=== PATIENT | male | born 1950 | race Caucasian/White ===

== ENCOUNTER 2018-07-09 22:42 | Inpatient (IN) ==
[2018-07-09] MEDS ORDERED: DUONEB 0.5 MG/3 MG ONE (23:04)
[2018-07-09] MEDS ORDERED: DUONEB 0.5 MG/3 MG NEB ONE ×2 (23:11→23:30)
[2018-07-09] MEDS ORDERED: NITROSTAT SL PRN (23:29)
[2018-07-09] MEDS ORDERED: MAGNESIUM SULFATE 1 GRAM/100 mL PREMIX 1 G/100 ML BAG IV ONE (23:31)
--- NOTE | 2018-07-09 23:35 | DR.URIAD ---
HPI - Time Seen Time seen: 23:31 - PCP Primary Care Physician: NFD - Complaint Chief Complaint Doctors Comments: Patient is complaining of cold, cough, SOB, wheezing for the past four weeks with cough with yellowish sputum production. states he does not have a local doctor and has not seen a doctor in a while. States he has right sidede chest pain when he cough and episode of diarrhea. He denies tobacco use but states he drinks about two beers daily. States he is allergic to steriod pills that makes his legs hurt badily and he stopped the steriods. States he took the steriod IV in the hospital without any problems. He denies dysuria, hematuria or vomiting. Patient with coughing spells and oxygen level drops to 87 during coughing episodes. Chief Complaint:: " C/O REALLY BAD COUCH HURTING IN CHEST AND WHEEZING" Self Treatment fo Chief Complaint: THERAFLU - Reviewed Nurses Notes Reviewed: Yes - Source History Provided: Patient - Mode of Arrival Mode of Arrival: Ambulatory - Timing Onset of Chief Complaint: 06/22/18 - Context Recent Treated Infections: None History of Respiratory: None - Quality Quality of Cough: Productive, Yellow Rhinorrhea: Clear Shortness of Breath: Mild - Associated Signs and Symptoms Other Signs and Symptoms: Cough, Shortness of Breath, Wheeze PMH - PMH Past Medical History: Yes Past Medical History: CVA, Hypertension Past Surgical History: No - Family History History of Family Medical Conditions: Yes Family Medical History: NC, Hypertension - Social History Alcohol Use: Occasionally Do you use any recreational Drugs:: No - infectious screening Have you traveled outside the country in the last 6 months?: No ROS - Review of Systems Constitutional: No Symptoms Reported Eyes: No Symptoms Reported ENTM: No Symptoms Reported, Nose Congestion Respiratoy: No Symptoms Reported, Productive Cough, Short of Breath, Wheezing Cardiovascular: No Symptoms Reported. negative: See HPI, Chest Pain, Edema, Palpitations, Syncope, Cyanosis, Skin Mottling, Other Gastrointestinal/Abdominal: No Symptoms Reported. negative: See HPI, Abdominal Pain, Constipation, Diarrhea, Nausea, Vomiting, Food Intolerance, Other Genitourinary: No Symptoms Reported Neurological: No Symptoms Reported Musculoskeletal: No Symptoms Reported Integumentary: No Symptoms Reported Hematologic/Lymphatic: No Symptoms Reported. negative: See HPI, Anemia, Blood Clots, Easy Bleeding, Easy Bruising, Swollen Glands, Lymphadenopathy, Other Endocrine: No Symptoms Reported Psychiatric: No Symptoms Reported. negative: See HPI, Anxiety, Depression, Hallucinations, Excessive crying, Suicidal, Other PE - General Limitations: No Limitations General Appearance: Alert, In Distress (moderate) - Head Head Exam: Normal Inspection, Atraumatic, Normocephalic - Eyes Eye exam: Normal Appearance, PERRL, EOMI. negative: Scleral Icterus, Conjunctival Injection, Nystagmus, Miosis, Mydrasis, Periorbital Swelling, Periorbital Tenderness, Other - ENT ENT Exam: Normal Exam, Normal Oropharynx, Normal External Ear Exam, Mucous Membranes Moist, TM's Normal Bilaterally External Ear Exam: Normal External Inspection TM/Canal Exam: Bilateral Normal Nose Exam: Normal Nose Exam Nasal Speculum Exam: Bilateral Normal Mouth Exam: Normal Inspection, Drooling Throat Exam: Normal Inspection - Neck Neck Exam: Normal Inspection, Full ROM, Trachea Midline - Chest Chest Inspection: Symmetric Chest Wall Rise. negative: Normal Inspection, Tenderness, Rash, Abscess, Other - Respiratory Respiratory Exam: Normal Lung Sounds Bilat, Prolonged Expiratory Phase Respiratory Exam: Bilateral Wheezing, Bilateral Rhonchi, Bilateral Decreased Breath Sounds - Cardiovascular Cardiovascular Exam: Regular Rate, Normal Rhythm, Normal Heart Sounds - Abdominal Exam Abdominal Exam: Normal Inspection, Normal Bowel Sounds, Soft. negative: Distention, Tenderness, Guarding, Rebound, Rigidity, Dimnished Bowel Sounds, Hyperactive Bowel Sounds, Hypoactive Bowel Sounds, Organomegaly, Trauma, Incision, Ascites, Mass, Bruit, Pulsatile Mass, Hernia, Other Abdominal Tenderness: negative: RUQ, RLQ, LUQ, LLQ, Epigastrium, Suprapubic, Diffuse, Mild, Moderate, Severe, Other - Extremeties Extremities Exam: Normal Inspection, Full ROM, Normal Capillary Refill. negative: Tenderness, Edema, Joint Swelling, Calf Tenderness, Other - Back Back Exam: Normal Inspection, Full ROM. negative: Tenderness, (R) CVA Tenderness, (L) CVA Tenderness, Muscle Spasm, Paraspinal Tenderness, Vertebral Tenderness, Rashes, (R) Sciatic Notch Tenderness, (L) Sciatic Notch Tendern, (R) Straight Leg Raise, (L) Straight Leg Raise, Other - Neurologic Neurological Exam: Alert, Oriented X3, CN II-XII Intact, Normal Gait, Reflexes Normal - Psychiatric Psychiatric Exam: Normal Affect, Normal Mood. negative: Depressed, Agitated, Anxious, Flat Affect, Manic, Homicidal Ideation, Suicidal Ideation, Other - Skin Skin Exam: Warm, Dry, Intact, Normal Color - Vital Signs Vitals: Temperature 98.0 F Pulse Rate [Brachial] 97 Pulse Rate 76 Respiratory Rate 18 Blood Pressure [Left Arm] 159/76 Blood Pressure 175/116 O2 Sat by Pulse Oximetry 95 Course - Reevaluation 1st: Improved - Consultation Called: 01:13 Call Returned: 01:13 (Dr. Godwin to admit) - Education/Counseling Education/Counseling: Patient, Family Educated On: Treatment, Diagnosis, Needs for Follow Up ROR - Labs Reviewed Laboratory Results Reviewed?: Yes (All labs and x-ray results reveiwed and discussed with patient) Result Diagrams: 07/09/18 23:16 07/09/18 23:16 - XRAY XRAY Interpreted by: Radiologist (CXR: Peribronchial thickening suggestive of bronchitis) - EKG Rate: 90 [place]: Normal Rhythm: NSR Block: None Hypertrophy: None ST: Nonsp - Labs Reviewed Laboratory: 07/09/18 23:17 Sputum - Expectorated Sputum - Final WBC 8.7 X10^3/uL (3.6-10.0) 07/09/18 23:16 RBC 4.38 X10^6/uL (4.7-6.0) L 07/09/18 23:16 Hgb 14.7 g/dL (13.5-18.0) 07/09/18 23:16 Hct 41.6 % (42.0-54.0) L 07/09/18 23:16 MCV 94.9 fL (80.0-100.0) 07/09/18 23:16 MCH 33.5 pg (27.0-34.0) 07/09/18 23:16 MCHC 35.2 g/dL (33.0-35.0) H 07/09/18 23:16 RDW 12.9 % (11.6-16.5) 07/09/18 23:16 Plt Count 193 X10^3/uL (150.0-450.0) 07/09/18 23:16 MPV 7.7 fL (7.4-11.0) 07/09/18 23:16 Neut % (Auto) 55.7 % (42.0-75.0) 07/09/18 23:16 Lymph % (Auto) 32.6 % (21.0-51.0) 07/09/18 23:16 [place] % (Auto) 7.1 % (0.0-13.0) 07/09/18 23:16 Eos % (Auto) 4.0 % (0.9-2.9) H 07/09/18 23:16 Baso % (Auto) 0.6 % (0.2-1.0) 07/09/18 23:16 Neut # (Auto) 4.8 x10^3/uL (2.2-4.8) 07/09/18 23:16 Lymph # (Auto) 2.8 X10^3/uL (1.3-2.9) 07/09/18 23:16 [place] # (Auto) 0.6 x10^3/uL (0.3-0.8) 07/09/18 23:16 Eos # (Auto) 0.3 x10^3/uL (0.0-0.2) H 07/09/18 23:16 Baso # (Auto) 0.1 X10^3/uL (0.0-0.1) 07/09/18 23:16 Absolute Nucleated RBC 0.1 /100WBC 07/09/18 23:16 INR Target Range - 07/09/18 23:16 INR 0.94 (0.8-1.3) 07/09/18 23:16 APTT 28.6 SECONDS (22.9-36.5) 07/09/18 23:16 PTT Comment - 07/09/18 23:16 D-Dimer 113 ng/mL (0-400) 07/09/18 23:16 Sodium 143 mmol/L (136-145) 07/09/18 23:16 Corrected Sodium TNP 07/09/18 23:16 Potassium 3.9 mmol/L (3.5-5.1) 07/09/18 23:16 Chloride 106 mmol/L (98-107) 07/09/18 23:16 Carbon Dioxide 25.8 mmol/L (21-32) 07/09/18 23:16 BUN 7 mg/dL (7-18) 07/09/18 23:16 Creatinine 1.00 mg/dL (0.70-1.30) 07/09/18 23:16 Est GFR (MDRD) Af Amer > 60 (>60) 07/09/18 23:16 Est GFR (MDRD) Non-Af > 60 (>60) 07/09/18 23:16 Glucose 99 mg/dL (65-99) 07/09/18 23:16 Calcium 8.3 mg/dL (8.5-10.1) L 07/09/18 23:16 Corrected Calcium TNP 07/09/18 23:16 Magnesium 2.2 mg/dL (1.7-2.9) 07/09/18 23:16 Total Bilirubin 0.20 mg/dL (0.2-1.0) 07/09/18 23:16 AST 55 Units/L (15-37) H 07/09/18 23:16 ALT 54 Units/L (12-78) 07/09/18 23:16 Alkaline Phosphatase 78 Units/L (46-116) 07/09/18 23:16 Creatine Kinase 530 Units/L (39-308) H 07/09/18 23:16 CK-MB (CK-2) 7.1 ng/mL (0-4.0) H* 07/09/18 23:16 CK/CKMB % Calc 1.3 % (<4) 07/09/18 23:16 Troponin I < 0.02 ng/mL (0-1.5) 07/09/18 23:16 Total Protein 8.2 g/dL (6.4-8.2) 07/09/18 23:16 Albumin 3.9 g/dL (3.4-5.0) 07/09/18 23:16 Globulin 4.3 g/dL (2.5-4.5) 07/09/18 23:16 Albumin/Globulin Ratio 0.9 Ratio (1.1-2.1) L 07/09/18 23:16 Amylase 29 Units/L (25-115) 07/09/18 23:16 Lipase 169 Units/L (73-393) 07/09/18 23:16 Ethyl Alcohol mg/dL 205 mg/dL (0-19.9) H 07/09/18 23:16 - Diagnosis Discharge Problem: COPD exacerbation, Chest pain, rule out acute myocardial infarction, Essential hypertension Bronchitis, acute Qualifiers: Bronchitis organism: other organism Qualified Code(s): J20.8 - Acute bronchitis due to other specified organisms Alcohol intoxication Qualifiers: Complication of substance-induced condition: uncomplicated Qualified Code(s): F10.920 - Alcohol use, unspecified with intoxication, uncomplicated - Discharge Plan Disposition: 09 ADMITTED INPATIENT Condition: Stable - Follow ups/Referrals Follow ups/Referrals: NFD,None [Primary Care Provider] - 3 days - Instructions
[2018-07-09 23:37] LABS: BASOPHILS # (AUTO) 0.1 X10^3/uL (0.0-0.1); BASOPHILS % (AUTO) 0.6 % (0.2-1.0); EOSINOPHILS # (AUTO) 0.3 x10^3/uL (0.0-0.2); HEMATOCRIT 41.6 % (42.0-54.0); HEMOGLOBIN 14.7 g/dL (13.5-18.0); LYMPHOCYTES # (AUTO) 2.8 X10^3/uL (1.3-2.9); LYMPHOCYTES % (AUTO) 32.6 % (21.0-51.0); MEAN CORPUSCULAR HEMOGLOBIN 33.5 pg (27.0-34.0); MEAN CORPUSCULAR HGB CONC 35.2 g/dL (33.0-35.0); MEAN CORPUSCULAR VOLUME 94.9 fL (80.0-100.0); MEAN PLATELET VOLUME 7.7 fL (7.4-11.0); MONOCYTES # (AUTO) 0.6 x10^3/uL (0.3-0.8); MONOCYTES % (AUTO) 7.1 % (0.0-13.0); NEUTROPHILS # (AUTO) 4.8 x10^3/uL (2.2-4.8); NEUTROPHILS % (AUTO) 55.7 % (42.0-75.0); PLATELET COUNT 193 X10^3/uL (150.0-450.0); RED BLOOD COUNT 4.38 X10^6/uL (4.7-6.0); RED CELL DISTRIBUTION WIDTH 12.9 % (11.6-16.5); WHITE BLOOD COUNT 8.7 X10^3/uL (3.6-10.0)
[2018-07-09] MEDS ORDERED: ROCEPHIN VIAL 1 GRAM IVP ONE (23:37)
--- NOTE | 2018-07-09 23:37 | RAD ---
Chest, one view Indication: Cough, chest pain and wheezing Comparison: None Findings: The exam is mildly degraded by motion artifact. Given these limitations, the heart is fritz l in size for AP technique. There is mild peribronchial thickening. No definite focal infiltrate, sig nificant effusion or pneumothorax is identified. There is no acute osseous abnormality. Impression: Motion limited exam. Peribronchial thickening, suggestive for bronchitis. Reported By:
[2018-07-09] MEDS ORDERED: NS 1000 ML 1,000 ML ONE (23:41)
[2018-07-09] MEDS ORDERED: ROCEPHIN VIAL 1 GRAM ONE (23:42)
[2018-07-09] MEDS ORDERED: NS 1000 ML 1,000 ML IV SCH (23:45)
[2018-07-09 23:58] LABS: AMYLASE 29 Units/L (25-115); BLOOD ALCOHOL 205 mg/dL (0-19.9); LIPASE 169 Units/L (73-393)
[2018-07-10 00:12] LABS: ALANINE AMINOTRANSFERASE 54 Units/L (12-78); ALBUMIN 3.9 g/dL (3.4-5.0); ALKALINE PHOSPHATASE 78 Units/L (46-116); ASPARTATE AMINO TRANSFERASE 55 Units/L (15-37); BLOOD UREA NITROGEN 7 mg/dL (7-18); CALCIUM 8.3 mg/dL (8.5-10.1); CARBON DIOXIDE 25.8 mmol/L (21-32); CHLORIDE 106 mmol/L (98-107); CKMB % 1.3 % (<4); CREATINE KINASE 530 Units/L (39-308); SODIUM 143 mmol/L (136-145); TOTAL PROTEIN 8.2 g/dL (6.4-8.2); TROPONIN I < 0.02 ng/mL (0-1.5); eGFR NON BLACK RACES > 60 (>60)
[2018-07-10 00:13] LABS: CREATINE KINASE MB 7.1 ng/mL (0-4.0)
[2018-07-10] MEDS ORDERED: TORADOL 30 MG VIAL IVP STA (00:48)
[2018-07-10] MEDS ORDERED: TORADOL 30 MG VIAL ONE (00:50)
[2018-07-10 03:03] VITALS: BMI 35.1
[2018-07-10 03:07] LABS: BILIRUBIN,URINE NEGATIVE (NEGATIVE); BLOOD/HEMOGLOBIN,URINE 1+ (NEGATIVE); GLUCOSE, URINE NEGATIVE (NEGATIVE); KETONES,URINE NEGATIVE (NEGATIVE); LEUKOCYTE ESTERASE ,URINE NEGATIVE (NEGATIVE); NITRITES,URINE NEGATIVE (NEGATIVE); PROTEIN,URINE NEGATIVE (NEGATIVE); UROBILINOGEN,URINE NORMAL (NORMAL)
[2018-07-10 03:14] LABS: APPEARANCE,URINE CLEAR (CLEAR); COLOR,URINE YELLOW (YELLOW); RBC,URINE 0-2 /HPF (NONE SEEN)
[2018-07-10 03:15] LABS: BACTERIA,URINE NEGATIVE /HPF (NEGATIVE); SQUAMOUS EPITHELIAL CELL,UR RARE /HPF (NEGATIVE)
[2018-07-10] MEDS ORDERED: ROBITUSSIN DM ONE (03:38)
[2018-07-10] MEDS: ROBITUSSIN DM PO PRN ×2 (03:45→08:11)
[2018-07-10] MEDS: DUONEB 0.5 MG/3 MG NEB SCH ×5 (04:14→20:02)
[2018-07-10] MEDS ORDERED: DUONEB 0.5 MG/3 MG NEB SCH (05:00)
[2018-07-10] MEDS: NS 1000 ML 1,000 ML IV SCH ×2 (05:00→19:00)
[2018-07-10] MEDS: TYLENOL 325 MG TAB PO PRN ×2 (05:42→11:37)
[2018-07-10 06:29] LABS: CKMB % 0.9 % (<4); CREATINE KINASE 435 Units/L (39-308); TROPONIN I < 0.02 ng/mL (0-1.5)
[2018-07-10] MEDS: LEVAQUIN PREMIX IV 500 MG 500 MG/100 ML BAG IV SCH (08:09)
[2018-07-10] MEDS: PROTONIX INJ 40 MG VIAL IVP SCH (08:09)
[2018-07-10] MEDS: DIOVAN TAB 80 MG PO SCH (08:11)
[2018-07-10] MEDS: LOVENOX INJ 40 MG SYR SC SCH (08:12)
[2018-07-10] MEDS ORDERED: NS 100 ML IV + SPIKE MINIBAG* 100 ML IV ONE (08:48)
[2018-07-10] MEDS ORDERED: DIOVAN TAB 80 MG PO SCH (09:00)
[2018-07-10] MEDS ORDERED: LOVENOX INJ 40 MG SYR SC SCH (09:00)
[2018-07-10] MEDS ORDERED: LEVAQUIN PREMIX IV 500 MG 500 MG/100 ML BAG IV SCH (09:00)
[2018-07-10] MEDS ORDERED: PROTONIX INJ 40 MG VIAL IVP SCH (09:00)
--- NOTE | 2018-07-10 10:03 | CT ---
HISTORY: Hemoptysis, hematemesis Study: CT chest with contrast Comparison: None Technique: Axial post-contrast images with coronal and sagittal reformats. Dose reduction procedures were used with mA/kv adjusted for body size. Findings: Examination of the mediastinum demonstrated no evidence for mediastinal masses, enlarged mediastinal or enlarged hilar adenopathy. The thoracic aorta is normal. No pleural effusions are identified. No c hest wall or axillary abnormality is identified. Those portions of the upper abdominal organs visuali zed were within normal limits. Examination of the lung marie demonstrated no evidence for nodules or masses. There is diffuse peribronchial thickening consistent with bronchitis which could be acute, c hronic, or both. Additionally there is peribronchial alveolar infiltrate posteriorly and inferiorly i n the right lower lobe most consistent with pneumonia. This was not well demonstrated on the recent p hdiraj chest x-ray likely due to motion artifact. A smaller infiltrate is present in the left lung base . IMPRESSION: Bilateral lower lobe pneumonia right greater than left Diffuse peribronchial thickening consistent with bronchitis which could be acute, chronic, or both Reported By:
[2018-07-10 11:50] LABS: CKMB % 0.8 % (<4); CREATINE KINASE 316 Units/L (39-308); CREATINE KINASE MB 2.4 ng/mL (0-4.0); TROPONIN I < 0.02 ng/mL (0-1.5)
[2018-07-10] MEDS: TUSSIONEX PENNKINETIC SUSP PO PRN (13:14)
[2018-07-10 17:54] LABS: CKMB % 0.7 % (<4); CREATINE KINASE 247 Units/L (39-308); CREATINE KINASE MB 1.6 ng/mL (0-4.0); TROPONIN I < 0.02 ng/mL (0-1.5)
[2018-07-11] MEDS: DUONEB 0.5 MG/3 MG NEB SCH ×6 (00:25→21:58)
[2018-07-11 05:36] LABS: BASOPHILS % (AUTO) 0.3 % (0.2-1.0); EOSINOPHILS # (AUTO) 0.1 x10^3/uL (0.0-0.2); HEMATOCRIT 36.6 % (42.0-54.0); HEMOGLOBIN 12.9 g/dL (13.5-18.0); LYMPHOCYTES # (AUTO) 1.2 X10^3/uL (1.3-2.9); MEAN CORPUSCULAR HGB CONC 35.3 g/dL (33.0-35.0); MEAN CORPUSCULAR VOLUME 96.2 fL (80.0-100.0); MEAN PLATELET VOLUME 8.1 fL (7.4-11.0); MONOCYTES # (AUTO) 0.7 x10^3/uL (0.3-0.8); MONOCYTES % (AUTO) 6.2 % (0.0-13.0); NEUTROPHILS # (AUTO) 8.7 x10^3/uL (2.2-4.8); NEUTROPHILS % (AUTO) 81.5 % (42.0-75.0); PLATELET COUNT 155 X10^3/uL (150.0-450.0); WHITE BLOOD COUNT 10.7 X10^3/uL (3.6-10.0)
[2018-07-11 05:37] LABS: ALANINE AMINOTRANSFERASE 31 Units/L (12-78); ALBUMIN 2.9 g/dL (3.4-5.0); ALKALINE PHOSPHATASE 49 Units/L (46-116); ASPARTATE AMINO TRANSFERASE 21 Units/L (15-37); BLOOD UREA NITROGEN 10 mg/dL (7-18); CALCIUM 7.9 mg/dL (8.5-10.1); CHLORIDE 103 mmol/L (98-107); COR CA(FOR HYPOALB) 8.8 mg/dL (8.5-10.1); CREATININE 1.06 mg/dL (0.70-1.30); SODIUM 139 mmol/L (136-145); TOTAL PROTEIN 6.9 g/dL (6.4-8.2); eGFR NON BLACK RACES > 60 (>60)
[2018-07-11] MEDS: DIOVAN TAB 80 MG PO SCH (09:04)
[2018-07-11] MEDS: LEVAQUIN PREMIX IV 500 MG 500 MG/100 ML BAG IV SCH (09:04)
[2018-07-11] MEDS: ROBITUSSIN DM PO PRN (09:04)
[2018-07-11] MEDS: LOVENOX INJ 40 MG SYR SC SCH (09:04)
[2018-07-11] MEDS: PROTONIX INJ 40 MG VIAL IVP SCH (09:04)
[2018-07-11] MEDS: NS 1000 ML 1,000 ML IV SCH ×2 (09:10→23:00)
[2018-07-11] MEDS ORDERED: MIRALAX POWDER (1 DOSE 17 G) PO PRN (12:44)
[2018-07-11] MEDS: TUSSIONEX PENNKINETIC SUSP PO PRN (20:10)
[2018-07-12] MEDS: DUONEB 0.5 MG/3 MG NEB SCH ×3 (01:07→09:10)
[2018-07-12 05:17] LABS: BASOPHILS % (AUTO) 0.6 % (0.2-1.0); EOSINOPHILS # (AUTO) 0.2 x10^3/uL (0.0-0.2); EOSINOPHILS % (AUTO) 3.1 % (0.9-2.9); HEMATOCRIT 37.7 % (42.0-54.0); HEMOGLOBIN 12.9 g/dL (13.5-18.0); LYMPHOCYTES # (AUTO) 1.2 X10^3/uL (1.3-2.9); LYMPHOCYTES % (AUTO) 16.2 % (21.0-51.0); MEAN CORPUSCULAR HEMOGLOBIN 32.8 pg (27.0-34.0); MEAN CORPUSCULAR HGB CONC 34.2 g/dL (33.0-35.0); MEAN CORPUSCULAR VOLUME 95.9 fL (80.0-100.0); MEAN PLATELET VOLUME 7.8 fL (7.4-11.0); MONOCYTES # (AUTO) 0.4 x10^3/uL (0.3-0.8); MONOCYTES % (AUTO) 5.2 % (0.0-13.0); NEUTROPHILS # (AUTO) 5.5 x10^3/uL (2.2-4.8); NEUTROPHILS % (AUTO) 74.9 % (42.0-75.0); PLATELET COUNT 173 X10^3/uL (150.0-450.0); RED BLOOD COUNT 3.93 X10^6/uL (4.7-6.0); RED CELL DISTRIBUTION WIDTH 13.2 % (11.6-16.5); WHITE BLOOD COUNT 7.4 X10^3/uL (3.6-10.0)
[2018-07-12 05:38] LABS: ALANINE AMINOTRANSFERASE 28 Units/L (12-78); ALBUMIN 2.9 g/dL (3.4-5.0); ALKALINE PHOSPHATASE 50 Units/L (46-116); ASPARTATE AMINO TRANSFERASE 19 Units/L (15-37); BLOOD UREA NITROGEN 7 mg/dL (7-18); CARBON DIOXIDE 27.6 mmol/L (21-32); CHLORIDE 106 mmol/L (98-107); COR CA(FOR HYPOALB) 8.9 mg/dL (8.5-10.1); SODIUM 140 mmol/L (136-145); TOTAL PROTEIN 7.2 g/dL (6.4-8.2); eGFR NON BLACK RACES > 60 (>60)
--- NOTE | 2018-07-12 06:23 | RAD ---
HISTORY: Follow-up pneumonia Study: Chest AP portable Comparison: CT chest 07/10/2018, chest x-ray 07/09/2018 Findings: The heart is mildly enlarged. No congestive heart failure is noted. The upper lung marie are clear. There is some increased density in the right cardiophrenic angle and in the lateral left lung base mo st consistent with the pneumonia is better visualized on the recent chest CT. A small left pleural ef fusion is likely present. The bony thorax is unremarkable. IMPRESSION: Bibasilar infiltrates which are not as well demonstrated as they were on the recent chest CT. There l ikely unchanged Small left pleural effusion Reported By:
[2018-07-12] MEDS: ROBITUSSIN DM PO PRN (07:03)
[2018-07-12 08:02] VITALS: BP 153/88
[2018-07-12] MEDS: LOVENOX INJ 40 MG SYR SC SCH (08:18)
[2018-07-12] MEDS: PROTONIX INJ 40 MG VIAL IVP SCH (08:18)
[2018-07-12] MEDS: DIOVAN TAB 80 MG PO SCH (08:18)
[2018-07-12] MEDS: LEVAQUIN PREMIX IV 500 MG 500 MG/100 ML BAG IV SCH (08:19)
[2018-07-12] MEDS ORDERED: DIOVAN TAB 80 MG PO SCH (09:11)
[2018-07-12] MEDS ORDERED: DIOVAN TAB 80 MG PO NR (10:00)
== END 2018-07-12 11:35 | disposition home or self-care (01) | DRG 194 ==
LOC: ER 22:59 → ICU 07-10 01:14
PROVIDERS: ADMIT Obstetrics & Gynecology Obstetrics; ATTEND Obstetrics & Gynecology Obstetrics
DX: R06.02 Shortness of breath; I10 Essential (primary) hypertension; F10.920 Alcohol use, unspecified with intoxication, uncomplicated; R19.7 Diarrhea, unspecified; R07.89 Other chest pain; J18.8 Other pneumonia, unspecified organism; R51 Headache; Z79.899 Other long term (current) drug therapy; K92.0 Hematemesis; J20.8 Acute bronchitis due to other specified organisms
CPT/HCPCS: 36415; 71010; 71045; 71260; 80053; 80061; 80320; 81001; 82150; 82550; 82553; 83690; 83735; 84484; 85025; 85378; 85610; 85730; 87040; 87070; 87086; 87205; 93005; 93010; 93041; 94640; 96365; 96374; 96375; 99284; A4216; A4222; C9113; G6040; J0696; J1650; J1885; J1956; J3475; J3490; J7030; J7050; J7620